=== PATIENT | female | born 1945 | race Caucasian/White ===

== ENCOUNTER → 2016-08-23 | Outpatient (CLI) | payer MEDICARE, OTHER ==
[~2016-08-23] MED LIST: BISO1TAB6; ENAL5TAB; FELO10TA3; HYDR-757 PO; SIMV20TA3
--- OUTSIDE RECORDS SUMMARY | 2016-08-23 08:37 | XMS REPORT | Continuity of Care Document ---
Author Author [facility] Organization [facility] Address Unknown Phone Unavailable Care Team Providers [employer] Name Role Phone RADHA YOON MD PCP Insurance Providers Payer Name Policy Number Subscriber Name Relationship [employer] [id number] George Segal 17 Self / Same As Patient Enter Insurance Name [id number] George Segal Self / Same As Patient Chief Complaint and Reason for Visit Chief Complaint Lower Extremity Reason for Visit [id number] Problems Active Problems Medical Problem Onset Date Status Hip sprain Unknown Acute Medications Current Home Medications Medication Dose Units Route Directions Days/Qty Instructions Start Date Enalapril Maleate 5 Mg 90 03/27/16 Felodipine 10 Mg 90 03/27/16 Simvastatin 20 Mg 90 03/27/16 Bisoprolol Fumarate/Hctz 1 Each 90 03/27/16 Hydrocodone/Acetaminophen 1 Each 1 Each Oral Every 6 Hours as needed for Pain 10 03/27/16 Social History Social History Problem Response Recorded Date/Time Recent Foreign Travel No 03/27/2016 2:06pm Recent Infectious Disease Exposure No 03/27/2016 2:06pm Recent Hopitalizations No 03/27/2016 2:08pm Hospital Discharge Instructions No hospital discharge instructions. Plan of Care Discharge Date 03/27/16 4:28pm Disposition 01 HOME, SELF-CARE Condition at Discharge Stable Instructions/Education Provided Hip Sprain (ED) Prescriptions See Medication Section Referrals CAR,RADHA A MD - Primary Care Physician Additional Instructions/Education 1. Return to ER for any concerns 2. Follow-up with Dr. Yoon next week 3. All discharge instructions reviewed with patient and/or family. Voiced understanding. Functional Status No functional status results. Allergies, Adverse Reactions, Alerts No known allergies. Immunizations No immunization records. Vital Signs Acute Vital Signs Vital Response Date/Time Temperature (Fahrenheit) 98 degrees F (97.6 - 99.5) 03/27/2016 2:06pm Temperature (Calculated Celsius) 36.6696 degrees C (36.4 - 37.5) 03/27/2016 2 :06pm Temperature Source Tympanic 03/27/2016 2:06pm Pulse Rate (adult) 65 bpm (60 - 90) 03/27/2016 2:06pm Respiratory Rate 18 bpm (12 - 24) 03/27/2016 2:06pm O2 Sat by Pulse Oximetry 95 % (88 - 100) 03/27/2016 2:06pm Blood Pressure 176/76 mm Hg 03/27/2016 2:06pm Blood Pressure Mean 109 mm Hg 03/27/2016 2:06pm Pain Numeric Pain Scale 2 03/27/2016 4:00pm Height (Feet) 5 feet 03/27/2016 2:06pm Height (Inches) 1 inches 03/27/2016 2:06pm Height (Calculated Centimeters) 154.057884 cm 03/27/2016 2:06pm Weight (Pounds) 231 pounds 03/27/2016 2:06pm Weight (Calculated Kilograms) 104.111715 kilograms 03/27/2016 2:06pm Capillary Refill Capillary Refill Less Than 3 Seconds 03/27/2016 2:06pm Height 5 ft 1 in Weight 231 lb Body Mass Index 43.6 kg/m^2 Results No known relevant diagnostic tests, laboratory data and/or discharge summary. Procedures No known history of procedures. Encounters Encounter Location Arrival/Admit Date Discharge/Depart Date Attending Provider Registered Emergency Room [facility] 03/27/16 1:55pm JOHN MATHEWS APRN Recent Diagnosis
--- NOTE | 2016-08-23 12:44 | Diagnostic Imaging Report ---
PROCEDURE: CT head without contrast. TECHNIQUE: Multiple contiguous axial images were obtained through the brain without the use of intravenous contrast. INDICATION: Early-onset Alzheimer's. FINDINGS: There is no intracranial hemorrhage, edema, or mass effect. There are periventricular and deep white matter hypodensities compatible with chronic microvascular ischemic changes. No extra-axial fluid collection is seen. Slight prominence of the lateral ventricles is probably from ex vacuo dilatation secondary to the periventricular white matter chronic ischemic changes. The calvarium, the visualized portions of the paranasal sinuses and orbits appear grossly unremarkable. IMPRESSION: No acute process. Dictated by: Dictated on workstation # [id number]
== END ==
LOC: RAD 08:34
PROVIDERS: ATTEND Nurse Practitioner Family
DX: R41.3 Other amnesia (principal)
CPT/HCPCS: 70450

== ENCOUNTER → 2016-11-12 | Outpatient (CLI) | payer MEDICARE, OTHER ==
--- NOTE | 2016-11-14 08:31 | ECHOCARDIOGRAPHY REPORT ---
PROCEDURE PHYSICIAN: MEGHAN BERNARDO DATE OF PROCEDURE: 11/12/2016 TWO DIMENSIONAL ECHOCARDIOGRAM REPORT PRIMARY PHYSICIAN: OTHER PHYSICIAN: REFERRING PHYSICIAN: Dr. Gould and Odalys Leon APRN ORDERING PHYSICIAN: INDICATION FOR THE PROCEDURE: Heart murmur. MEASUREMENTS DERIVED VALUES LV DIAMETER (LAX) NORMALS NORMALS Diastolic 4.7 (3.6-5.2) Eject. Fract. 60% (60%+/-6%) Systolic (2.3-3.9) Diastolic Vol. % Shortening (0.22-0.42) Systolic Vol. Aortic Root IVS THICKNESS Diastolic 0.9 (0.6-1.1) LVPW THICKNESS Diastolic 1 (0.6-1.1) LA DIAMETER Systolic 3.1 (2.1-3.7) FINDINGS: 1. Technical quality is good. 2. The left ventricle is normal in size with normal contractility. Systolic function appeared to be normal. Estimated ejection fraction 60%. 3. The left atrium is normal in size. No clot or thrombus were seen within the left atrium. 4. The right atrium and right ventricle are normal in size. No clot or thrombus were seen within the right side. 5. Mitral valve is mildly calcified with mild mitral regurgitation noted by color Doppler flow. No mitral valve prolapse. No mitral valve stenosis. 6. Aortic valve is mildly calcified. No significant aortic valve stenosis or regurgitation was seen. 7. Tricuspid valve is normal in morphology with mild tricuspid regurgitation noted by color Doppler flow. Doppler across tricuspid valve estimated pulmonary artery pressure of 14+ right atrial pressure. 8. Pulmonic valve is functioning normally. 9. No pericardial effusion. IN CONCLUSION: 1. Normal left ventricular size and systolic function. Estimated ejection fraction 60%. 2. 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 3. Aortic valve sclerosis, no aortic stenosis. 4. Estimated pulmonary artery pressure of 20 mmHg. Job ID: [id number] Dictated Date: 11/13/2016 16:24:13 [employer] Offbearer Date: 11/14/2016 08:26:33 / blossom
== END ==
LOC: CARD 12:57
PROVIDERS: ATTEND Nurse Practitioner Family
DX: R01.1 Cardiac murmur, unspecified (principal)
CPT/HCPCS: 93306

== ENCOUNTER → 2018-06-19 | Outpatient (CLI) | payer MEDICARE, OTHER ==
[~2018-06-19] MED LIST changes: +HYDR-4226 PO; -HYDR-757 PO; +SULF1TAB35 PO
--- NOTE | 2018-06-19 12:30 | Diagnostic Imaging Report ---
INDICATION: Routine screening. COMPARISON is made with prior mammograms from 06/10/2017 and 06/03/2016. 2-D and 3-D bilateral screening mammography was performed with CAD. FINDINGS: Both breasts are heterogeneously dense, limiting the sensitivity of mammography. There are scattered benign-appearing calcifications throughout both breasts. Benign nodules in the outer portions of both breasts are also seen and appear stable. No dominant mass or malignant-appearing microcalcifications are seen. The axillae are unremarkable. IMPRESSION: BI-RADS category 2. No mammographic features suspicious for malignancy are identified. Dictated by: Dictated on workstation # [id number]
== END ==
LOC: RAD 08:55
PROVIDERS: ATTEND Nurse Practitioner Family
DX: Z12.31 Encounter for screening mammogram for malignant neoplasm of breast (principal)
CPT/HCPCS: 77067

== ENCOUNTER → 2021-01-04 | Outpatient (CLI) | payer MEDICARE, OTHER ==
[~2021-01-04] MED LIST changes: +BISO-3; -BISO1TAB6; -ENAL5TAB; +ENLP5T; -FELO10TA3; +FELO10TA41; +SIMV20TA26; -SIMV20TA3
--- NOTE | 2021-01-05 10:56 | Diagnostic Imaging Report ---
INDICATION: Routine screening. COMPARISON is made with prior mammograms of 06/19/2018 and 06/10/2017. 2-D and 3-D bilateral screening mammography was performed with CAD. Both breasts are heterogeneously dense, limiting the sensitivity of mammography. Benign calcifications throughout both breasts are again noted. There are benign appearing nodules in the upper and outer aspects of both breasts, stable. No spiculated mass or malignant appearing microcalcifications are seen. Axillae are unremarkable. IMPRESSION: BI-RADS Category 2 No mammographic features suspicious for malignancy are identified. ACR BI-RADS Category 2: Benign findings. Result letter will be mailed to the patient. Note: At least 10% of breast cancer is not imaged by mammography. Dictated by: Dictated on workstation # [id number]
== END ==
LOC: RAD 15:15
PROVIDERS: ATTEND Nurse Practitioner Family
DX: Z12.31 Encounter for screening mammogram for malignant neoplasm of breast (principal)
CPT/HCPCS: 77063; 77067

== ENCOUNTER → 2021-08-24 | Outpatient (CLI) | payer MEDICARE, OTHER ==
[~2021-08-24] MED LIST changes: -SULF1TAB35 PO; +SULF1TAB38 PO
--- NOTE | 2021-08-24 15:36 | Diagnostic Imaging Report ---
PROCEDURE: US Renal Bilateral. TECHNIQUE: Multiple real-time grayscale images were obtained over the kidneys in various projections bilaterally. INDICATION: Chronic renal insufficiency Ultrasonography of the kidneys is performed, bilaterally. Right and left kidneys measure 10 x 4.4 x 4.2 cm and 8.0 x 3.7 x 4.7 cm, respectively. There is dilatation of the right renal collecting system which may be due to extrarenal pelvis. No solid renal mass is identified and there is no evidence of perinephric fluid collection. Both ureteric jets were confirmed in the bladder lumen. Initial bladder volume is 180 mL. This is reduced to 8 mm after voiding. IMPRESSION: Probable right extrarenal pelvis without evidence of focal renal abnormality or significant hydronephrosis. There is no significant post void residual. Dictated by: Dictated on workstation # [id number]
== END ==
LOC: RAD 12:21
PROVIDERS: ATTEND Internal Medicine Nephrology
DX: N18.32 Chronic kidney disease, stage 3b (principal)
CPT/HCPCS: 76770

== ENCOUNTER → 2023-04-13 | Outpatient (CLI) | payer MEDICARE ==
[~2023-04-13] MED LIST changes: +ENAL-66; -ENLP5T
--- NOTE | 2023-04-13 15:50 | Diagnostic Imaging Report ---
EXAMINATION: Left knee radiographs, 3 views. COMPARISON: None. HISTORY: 77-year-old female, fall. Left knee pain. FINDINGS: There is chondrocalcinosis. There is at least moderate patellofemoral compartment joint space loss. There is no left knee joint effusion. There is no identified acute fracture. IMPRESSION: 1. Chondrocalcinosis with at least moderate patellofemoral compartment arthritis. This can be seen with calcium prior to phosphate dihydrate deposition disease. 2. No acute fracture or knee joint effusion. Dictated by: Dictated on workstation # [id number]
--- NOTE | 2023-04-13 15:51 | Diagnostic Imaging Report ---
EXAMINATION: Left femur radiographs, 2 views, 4 images. COMPARISON: Left femur radiographs March 27, 2016. HISTORY: 77-year-old female, fall. Left femur pain. FINDINGS: There is no identified acute fracture. There is no identified radiopaque foreign body. There is chondrocalcinosis with fairly isolated patellofemoral compartment arthritis of the left knee. IMPRESSION: No identified acute bony abnormality of the left femur. Dictated by: Dictated on workstation # [id number]
--- NOTE | 2023-04-13 15:56 | Diagnostic Imaging Report ---
EXAMINATION: Left tibia and fibula radiographs, 2 views. COMPARISON: None. HISTORY: 77-year-old female, fall. Left tibia and fibula pain. FINDINGS: There is no identified acute fracture. There is no identified radiopaque foreign body. There is diffuse reticulation of the subcutaneous fat which may reflect nonspecific subcutaneous edema. IMPRESSION: No identified acute bony abnormality of the left tibia or fibula. Dictated by: Dictated on workstation # [id number]
== END ==
LOC: RAD 15:14
PROVIDERS: ATTEND Registered Nurse Critical Care Medicine
DX: M17.12 Unilateral primary osteoarthritis, left knee (principal); M11.262 Other chondrocalcinosis, left knee; E78.49 Other hyperlipidemia; I10 Essential (primary) hypertension; E03.9 Hypothyroidism, unspecified; S83.8X2A Sprain of other specified parts of left knee, initial encounter; W18.39XA Other fall on same level, initial encounter; Y92.098 Other place in other non-institutional residence as the place of occurrence of the external cause
CPT/HCPCS: 73552; 73562; 73590